=== PATIENT | female | born 1970 | race Caucasian/White ===

== ENCOUNTER 2017-06-13 05:49 | Observation (INO) | payer OTHER ==
--- NOTE | 2017-05-26 14:07 | GHP ---
[f rep st] HISTORY AND PHYSICAL DATE OF ADMISSION: 06/13/2017 ADMITTING DIAGNOSES: 1. Complex hyperplasia with atypia. 2. Dysfunctional uterine bleeding. 3. Menorrhagia. HISTORY OF PRESENT ILLNESS: Patient is a 46-year-old, nulliparous female, who presents to my office in December with complaints of irregular menses for the past 2 years duration. Age of menarche is 14. Cycles usually regular, lasting 5-6 days, now cycles are "erratic." She can bleed for a whole month, heavy with clots. She did have a cycle that started in August 2016 and ended in October 2016. She had no bleeding for 2 weeks and then started bleeding heavy again in April. Currently, she is not bleeding. The patient does have a history of hypothyroidism, stable on medications, and was recently increased to 200 mcg. She does have a history of anemia, and is status post iron transfusion 2 weeks ago. She had recent blood work with her PCP, and everything looked normal. A pelvic ultrasound showed a uterus 8 x 7 x 7 cm, with thickened endometrium at 3 cm, and a 4 x 3 cm irregular shaped solid mass within the upper mid endometrium , with a feeder vessel, and it did not have a typical appearance of fibroid or polyp. The right ovary is not seen well due to bowel and the left ovary has 2 cystic masses about 1 x 2 cm, and 2 x 2 cm. No free fluid noted. An endometrial biopsy under ultrasound guidance was done that revealed complex hyperplasia with atypia. I reviewed results with the patient and recommended surgical removal of uterus, a hysterectomy since the patient is not a candidate for progesterone treatment. I offered to have the patient see LASTING MACHINE OPERATOR HAND METHOD/ONC, Dr. Roselia Barber in [place] for surgery. She is not interested in going to [place] , and desires to have the surgery done here at [facility]. She saw her primary care physician, and got surgical clearance. She is waiting to see what her iron levels are to see if she needs another iron transfusion prior to surgery. PAST OB HISTORY: Patient is nulliparous. LASTING MACHINE OPERATOR HAND METHOD HISTORY: Age of menarche 12-13. Cycles used to be regular, about 5-6 days , now have been irregular for the past 2 years. The patient denies a history of abnormal Pap smears or any exposure to sexually transmitted diseases. CURRENT MEDICATIONS: Levothyroxine, Cosentyx, Zyrtec, Zantac. ALLERGIES: No known drug allergies. PAST MEDICAL HISTORY: Hypothyroidism, psoriasis, GERD, anemia, and seasonal allergies. PAST SURGICAL HISTORY: Ear tube placement, and adenoidectomy at age 12. FAMILY HISTORY: Noncontributory. SOCIAL HISTORY: Patient is and lives with her . Denies any smoking or illicit drug use. Admits to alcohol occasionally on the weekends. REVIEW OF SYSTEMS: A 10-point review of systems is negative. Pertinent positives noted in HPI. LAB WORK: Blood work is pending. EXAM: GENERAL: The patient is a well-nourished, well-developed female, alert and oriented x3. Obese. VITAL SIGNS: Stable. Afebrile. CARDIOVASCULAR: Regular rate and rhythm. LUNGS: Clear to auscultation bilaterally. ABDOMEN: Obese, soft, nontender, nondistended. On bimanual exam, uterus is normal size, nontender, mobile. No adnexal mass is noted. Body habitus does limit accuracy of the exam. EXTREMITIES: Normal to inspection without calf tenderness or edema. ASSESSMENT AND PLAN: Patient is a 46-year-old nulliparous female with dysfunctional uterine bleeding, menorrhagia, and recent diagnosis of complex hyperplasia with atypia. 1. Discussed a 25% risk of developing uterine cancer with this diagnosis. The patient wants to proceed with laparoscopic hysterectomy, bilateral salpingectomy at this time, she desires to keep her ovaries. 2. Discussed surgery, its limitations, n.p.o. status, and postop recovery. 3. Surgical consents were obtained. 4. Discussed risks, benefits, alternatives with the patient including bleeding , infection, and risks to damage to surrounding organs including bowel, bladder and ureters. 5. Patient understands all risks of surgery, and wants to proceed with surgery at this time. 6. Deep vein thrombosis prophylaxis with sequential compression devices. 7. IV antibiotics glassware maker demonstrator to operating room. 8. We will use naproxen for pain control since patient does not tolerate Motrin. /[id number]/MODL MTDD
[2017-06-13] MEDS ORDERED: ceFAZolin 3 GM in D5W 100 ML IV ONE (06:00)
[2017-06-13] MEDS ORDERED: LIDOCAINE 1% 2 ML INJ ID PRN (06:11)
[2017-06-13] MEDS ORDERED: LR 1,000 ML IV ONE (06:11)
[2017-06-13] MEDS ORDERED: BUPIVACAINE 0.5% 30 ML SDV ONE (06:42)
[2017-06-13] MEDS ORDERED: MIDAZOLAM 2 MG/2 ML VIAL IVP ONE (07:09)
[2017-06-13] MEDS ORDERED: MIDAZOLAM 2 MG/2 ML VIAL ONE (07:10)
--- NOTE | 2017-06-13 07:10 | PDANEPAE ---
ANE History of Present Illness Patient presents for Lap Hys ANE Past Medical History - Cardiovascular History Hx Hypertension: No Hx Arrhythmias: No Hx Chest Pain: No Hx Coronary Artery / Peripheral Vascular Disease: No Hx CHF / Valvular Disease: No Hx Palpitations: No - Pulmonary History Hx COPD: No Hx Asthma/Reactive Airway Disease: No Hx Recent Upper Respiratory Infection: No Hx Oxygen in Use at Home: No Hx Sleep Apnea: No Sleep Apnea Screening Result - Last Documented: Negative - Neurologic History Hx Cerebrovascular Accident: No Hx Seizures: No Hx Dementia: No - Endocrine History Hx Diabetes: No Obesity: yes, moderate, severe - Renal History Hx Renal Disorders: No - Liver History Hx Hepatic Disorders: No - Neurological & Psychiatric Hx Hx Neurological and Psychiatric Disorders: No - Cancer History Hx Cancer: Yes Cancer History Comment: basal cell skin - Congenital Disorder History Hx Congenital Disorders: No - GI History GERD: moderate Hx Gastrointestinal Disorders: No - Other Health History Other Health History: sinus congestion. iron deficiency, anemia - Chronic Pain History Chronic Pain: No - Surgical History Prior Surgeries: none ANE Review of Systems Review of Systems: - Exercise capacity METS (RN): 4 METS ANE Patient History - Allergies Allergies/Adverse Reactions: No Allergies [NKDA] Allergy (Verified 12/22/16 12:32) - Home Medications Home Medications: Cetirizine [ZyrTEC 10 mg (*)] 10 mg PO DAILY 05/29/17 [Last Taken 06/12/17 22:00 ] Levothyroxine [Synthroid 200 mcg (*)] 200 mcg PO DAILY06 05/29/17 [Last Taken 04:00] Ranitidine HCl [Zantac] 150 mg PO HS 05/29/17 [Last Taken 06/12/17 22:00] Secukinumab [Cosentyx Syringe] 300 mg SQ Q30D 05/29/17 [Last Taken 05/04/17] - NPO status NPO Status: no food or drink >8 hours NPO Since - Liquids (Date): 06/12/17 NPO Since - Liquids (Time): 00:59 NPO Since - Solids (Date): 06/12/17 NPO Since - Solids (Time): 22:00 - Smoking Hx Smoking Status: Former smoker - Family Anes Hx Family Hx Anesthesia Complications: none ANE Labs/Vital Signs - Vital Signs Blood Pressure: 165/92 Heart Rate: 99 Respiratory Rate: 20 O2 Sat (%): 96 Height: 175.26 cm Weight: 140.614 kg ANE Physical Exam - Airway Neck exam: FROM Mallampati Score: Class 2 Mouth exam: normal dental/mouth exam - Pulmonary Pulmonary: no respiratory distress - Cardiovascular Cardiovascular: regular rate and rhythym - ASA Status ASA Status: II ANE Anesthesia Plan Anesthesia Plan: general endotracheal anesthesia (RBA discussed)
--- NOTE | 2017-06-13 07:10 | PDHPUP ---
History & Physical Update H&P update statement: This history and physical update is based on an assessment of the patient which was completed after admission or registration (within 24 hours), but prior to the surgery/procedure. H&P update: H&P reviewed & patient examined, no change in patient's condition since H&P completed
[2017-06-13] MEDS ORDERED: PROPOFOL 200 MG/20 ML VIAL ONE (07:17)
[2017-06-13] MEDS ORDERED: PROPOFOL/EMULSION 500 MG/50 ML BOTTLE IV ONE ×2 (07:17→08:31)
[2017-06-13] MEDS ORDERED: fentaNYL 100 MCG/2 ML INJ ONE (07:17)
[2017-06-13] MEDS ORDERED: SUCCINYLCHOLINE CHLORIDE 200 MG/10 ML SYR IVP ONE (07:19)
[2017-06-13] MEDS ORDERED: ROCURONIUM 50 MG/5 ML VIAL ONE ×3 (07:23→09:19)
[2017-06-13] MEDS ORDERED: DEXAMETHASONE 4 MG/ML VIAL ONE (08:06)
[2017-06-13] MEDS ORDERED: RANITIDINE 50 MG/2 ML VIAL ONE (08:06)
[2017-06-13] MEDS ORDERED: ONDANSETRON 4 MG/2 ML VIAL ONE (08:06)
[2017-06-13] MEDS ORDERED: METOCLOPRAMIDE 10 MG/2 ML VIAL ONE (08:06)
[2017-06-13] MEDS ORDERED: HYDROmorphONE/DILAUDID 2 MG/ML INJ ONE ×2 (08:16→10:51)
[2017-06-13] MEDS ORDERED: SUGAMMADEX SODIUM 200 MG/2 ML VIAL IVP ONE (11:21)
[2017-06-13] MEDS ORDERED: fentaNYL 100 MCG/2 ML INJ IVP PRN ×2 (11:41→12:35)
[2017-06-13] MEDS ORDERED: HYDROmorphONE/DILAUDID 2 MG/ML INJ IVP PRN ×2 (11:41→12:35)
[2017-06-13] MEDS ORDERED: ACETAMINOPHEN 500 MG TAB PO PRN (11:41)
[2017-06-13] MEDS ORDERED: LR 500 ML IV PRN (11:41)
[2017-06-13] MEDS ORDERED: oxyCODONE IR 5 MG TAB PO PRN ×2 (11:41→12:35)
[2017-06-13] MEDS ORDERED: ONDANSETRON 4 MG/2 ML VIAL IVP PRN ×2 (11:41→12:09)
[2017-06-13] MEDS ORDERED: NALOXONE HCL 0.4 MG/ML INJ IVP PRN ×2 (11:41→12:35)
--- NOTE | 2017-06-13 12:08 | POSTOPPROG ---
Post Op Note Date of Operation: 06/13/17 Surgeon: Loretta Beaver Thaw Shed Heater Tender: Comfort Roblero Anesthesiologist: Eliu Robertson Anesthesia: GET(General Endotracheal) Pre-op Diagnosis: Complex hyperplasia with atypia; DUB; menorrhagia Post-op Diagnosis: Complex hyperplasia with atypia; DUB; menorrhagia Indication: 46 y/o nulliparous w/ DUB, menorrhagia; EMBx-complex hyperplasia w/ atypia Procedure: TLH, BS; cystoscopy; repair of vaginal laceration Findings: Enlarged ut that sounded 10 cm; R ovary with PCOS; L ovary wnl; tubes wnl Inf/Abcess present in the surg proc area at time of surgery?: No Depth: Organ Space EBL: 50-100 (50 cc) Total fluids administered: 1800 cc LR UO: 250 cc clear urine at end Complications: None Specimen(s): Uterus and fallopian tubes
[2017-06-13] MEDS ORDERED: ONDANSETRON DISINTEGRATING 4 MG TAB PO PRN (12:09)
[2017-06-13] MEDS ORDERED: HYDROCODONE/APAP 5/325 TAB PO PRN (12:09)
[2017-06-13] MEDS ORDERED: NAPROXEN SODIUM 220 MG TAB PO PRN (12:13)
[2017-06-13] MEDS ORDERED: LR 1,000 ML IV SCH (12:30)
[2017-06-13] MEDS ORDERED: LABETALOL HCL 5 MG/ML 20 ML MDV IVP PRN (12:35)
[2017-06-13] MEDS ORDERED: ceFAZolin 2 GM/SWFI 2 GM/20 ML SYR IVP ONE (12:36)
--- NOTE | 2017-06-13 12:37 | POSTANESTH ---
Post Anesthetic Evaluation Cardiovascular Status: Similar to Pre-Op Cond Respiratory Status: Similar to Pre-op Cond. Level of Consciousness/Mental Status: Alert and Oriented Pain Control: Adequate, Prn Tx Ordered Nausea/Vomiting Control: Adequate, Prn Tx Ordered Complications Possibly Related to Anesthesia: None Noted
[2017-06-13] MEDS: KETOROLAC 30 MG/1 ML SDV IVP SCH ×2 (17:26→23:48)
[2017-06-13] MEDS ORDERED: SODIUM FERRIC GLUCONAT/SUCROSE 125 MG in NS 100 ML IV ONE (17:41)
[2017-06-14] MEDS: KETOROLAC 30 MG/1 ML SDV IVP SCH (05:56)
--- NOTE | 2017-06-14 07:27 | SOAPPROG ---
[facility] Progress Note Assessment/Plan: Assessment: 1) s/p TLH, BS, cystoscopy and vaginal lac repair secondary to complex hyperplasia, DUB and menorrhagia POD # 1 - pt is stable 2) Anemia -s/p IV iron transfusion per pt request, pt is asymptomatic Plan: Continue routine post-op care Urine output good thus far, voided x 1 Plan for d/c home later this am Instructions reviewed with pt Rx given for [place] and Naproxen - to partner yesterday Recommend iron, colace, Miralax prn Pelvic rest and lifting restrictions given RTC in 2 weeks for post-op check 06/14/17 07:22 Subjective: Pt seen and examined. Doing well, with no complaints. Pain is well controlled, only had Toradol so far. Pt is OOB without dizziness/lightheadedness, ralph regular diet, voiding and passing flatus. Minimal spotting at this time. Denies any f/c/n/v/CP or SOB. No calf tenderness. Objective: Vital Signs Temp Pulse Resp BP Pulse Ox 37.7 C 86 18 127/74 H 96 06/14/17 04:19 06/14/17 04:19 06/14/17 04:19 06/14/17 04:19 06/14/17 04:19 Laboratory Results 06/14/17 04:15 06/13/17 06/14/17 06/15/17 05:59 05:59 05:59 Intake Total 1900 2009 Output Total 100 2775 200 Balance 1800 -765 -200 Physical Exam - Physical Exam General Appearance: WD/WN, alert, no apparent distress Respiratory: lungs clear, normal breath sounds Cardiac/Chest: regular rate, rhythm Abdomen: normal bowel sounds, non-tender (appropriate tenderness), soft, other ( Incisions: C/D/I with glue intact; some ecchymosis) Pelvic Exam: deferred Skin: normal color, warm/dry Extremities: non-tender, normal inspection Neuro/Psych: alert, normal mood/affect, oriented x 3 ICD10 Worksheet Patient Problems: Problems Problem Status Onset Complex atypical endometrial hyperplasia Acute DUB (dysfunctional uterine bleeding) Acute Menorrhagia Acute
[2017-06-14 09:04] VITALS: BP 137/75
--- NOTE | 2017-06-14 11:44 | GOP ---
[f rep st] OPERATIVE REPORT DATE OF OPERATION: 06/13/2017 SURGEON: Loretta Beaver DO SENIOR NET WEB DEVELOPER: Comfort Roblero MD. ANESTHESIA: General endotracheal. ANESTHESIOLOGIST: Dr. Gabo Robertson. PREOPERATIVE DIAGNOSIS: 1. Complex hyperplasia with atypia. 2. Dysfunctional uterine bleeding. 3. Menorrhagia. 4. Morbid obesity. POSTOPERATIVE DIAGNOSIS: 1. Complex hyperplasia with atypia. 2. Dysfunctional uterine bleeding. 3. Menorrhagia. 4. Morbid obesity. PROCEDURE PERFORMED: Total laparoscopic hysterectomy with bilateral salpingectomy, Cystoscopy, and repair of vaginal laceration. FINDINGS: Grossly normal but enlarged uterus that sounded to 10 cm. No definitive fibroids noted. Right ovary consistent with PCOS, but left ovary normal appearing. Bilateral tubes grossly normal appearing. Upper abdomen grossly normal appearing. Appendix not visualized. All specimens to pathology. SPECIMENS: Uterus, bilateral tubes. ESTIMATED BLOOD LOSS: 100 cc. INDICATIONS: The patient is a 46-year-old nulliparous female who is morbidly obese, who presents with a long history of dysfunctional uterine bleeding, and menorrhagia for the past 2 years. The patient does have a history of hypothyroidism, and stable on medications. She also has a history of anemia and gets IV iron infusions with her primary care doctor. Pelvic ultrasound revealed an enlarged uterus with thickened endometrium at 3 cm and a 4 x 3 cm regular-shaped solid mass within the upper mid endometrium. Endometrial biopsy under ultrasound guidance was done, and revealed complex hyperplasia with atypia. Results were reviewed with the patient. Recommended surgical removal of uterus, hysterectomy, since the patient is not a candidate for progesterone treatment. Offered to have the patient see DENTAL HYGIENE INSTRUCTOR/ONC, Dr. Roselia Boland, in [place] for surgery. She is not interested in going to [place], desires to have surgery done here at [facility]. She sa her primary care physician, and got surgical clearance. Surgical consents were obtained. We discussed risks, benefits, alternatives of the procedure including but not limited to bleeding, infection and damage to surrounding organs. The patient understands all risks of the procedure and wants to proceed at this time. DESCRIPTION OF PROCEDURE: The patient was taken to the operating room where general anesthesia was obtained with some difficulty secondary to the patient's body habitus. The patient was then placed in dorsal lithotomy position, prepped and draped in the usual sterile manner. A Calhoun catheter was placed in her bladder. After WHO time-out was performed, an open-sided speculum was placed in patient's vagina. The anterior lip of the cervix was grasped with a single- tooth tenaculum. The cervix was dilated up to an 8 Hegar. Uterus was then sounded to 10 cm. The medium-sized cup and size 10 tip for the RAULITO manipulator was used and this was advanced up through the cervix to provide a means to manipulate the uterus. All instruments were then removed from the vagina. We then turned our attention to the patient's abdomen. A very large pannus was noted. The infraumbilical area was injected with 0.5% plain Marcaine and a 5 mm infraumbilical skin incision was made with a knife. The long Veress needle was then inserted very carefully while tenting the abdominal wall. Aspiration was negative. Abdomen was then insufflated with carbon dioxide, but there was an elevated opening pressure noted, so the gas was turned off and the Veress needle removed. The incision was enlarged to 10-12 mm and we went in directly with the trocar and attached laparoscope. CO2 gas was then turned on and pneumoperitoneum was obtained. The patient was then placed in Trendelenburg position. At this time, there was inadequate visualization of the pelvic structures secondary to omentum and bowel. After injection of more local, a 10 mm skin incision was made in the right lower quadrant and a 5 mm skin incision was made in the left lower quadrant and 2 cm superior and medial to that another 5 mm incision was made. Atraumatic trocars were placed under visualization without difficulty. The patient was placed in more Trendelenburg position as much as would allow. The fimbria of the right tube was grasped with an atraumatic grasper. Then using the LigaSure, the mesosalpinx was grasped, cauterized multiple times, and we worked our way up to the cornual insertion of the tube. The tube was then transected and removed through the 10 mm port without difficulty. Specimen sent to Pathology. The round ligament was then grasped, coagulated with the LigaSure multiple times, and transected. Hemostasis was noted. The dissection was carried down to the anterior and posterior leaves of the broad ligament which were and then to the bladder flap anteriorly. This was created both sharply and bluntly. Uterine vessels were then cauterized multiple times, and transected with the LigaSure. Hemostasis was ensured. We also incorporated the cardinal ligaments which were cauterized and transected with the LigaSure. We then turned our attention to the left side. The left fimbria was grasped with atraumatic graspers, and then using the LigaSure, in a similar fashion, the mesosalpinx was cauterized, and transected and carried all the way to the cornual insertion of the tube. The left tube was then transected and removed through the 10 mm port without difficulty. Hemostasis was noted. A similar procedure was done on this side to complete the hysterectomy. All pedicles did appear hemostatic. Attention was then turned to the colpotomy. This was done using the hook. We started anteriorly and was able to do this circumferentially until the colpotomy was complete. There was some bleeding noted from the vaginal cuff. At this time, the uterus was removed through the vagina with some difficulty secondary to tight hymenal band, nulliparity. A sponge glove was then placed in the vagina in order to maintain pneumoperitoneum. We then went back up top to visualize the vaginal cuff laparoscopically. Using a running 0 Vicryl V-Loc suture, the vaginal cuff was closed [id number]. Hemostasis was ensured. Pelvis was then irrigated with copious amounts of normal saline. There was no bleeding noted from any of the pedicles, and the vaginal cuff was hemostatic. It was difficult secondary to patient's body habitus to visualize the ureters; so we proceeded with a cystoscopy. Calhoun catheter was removed and a 30 degree cystoscope was placed up into the urethra and gently passed to the bladder which was distended using NS. The dome of the bladder was visualized as well as bilateral ureteral orifices with spillage of urine seen bilaterally. The cystoscope was then removed and new calhoun catheter placed to allow bladder to drain. The trocar sleeves were removed and all gas was allowed to escape from the abdomen. Because of the patient's habitus, we were unable to use the fascial closing device. The fascia of the infraumbilical incision was found and closed with 3-0 Vicryl. We then closed the subcutaneous in 2 layers with 2-0 Vicryl. The skin was then closed with 3-0 Monocryl. The fascia of the right lower quadrant incision was unable to be found so we closed the subcutaneous in multiple layers with 2-0 Vicryl, and then the skin was closed with 3-0 Monocryl. The other 5 mm skin incisions were closed with 3-0 Monocryl. Dermabond was then applied over all 4 incisions. Hemostasis was noted. The sponge glove was removed from the vagina and there was noted to be bleeding. With inspection, there was a midline vaginal laceration at the fourchette. It was repaired with a [id number] stitch of 3-0 Vicryl. Hemostasis noted. There was also a right vaginal wall laceration which was closed with 3-0 Vicryl. There was still noted to be some oozing and there was an additional loss of 50 cc of blood, so the vagina was packed with a vaginal packing to be removed in the morning. There were no complications. Patient tolerated the procedure well. All instrument, sponge, and needle counts were correct x2. The patient was then taken out of dorsal lithotomy position, awakened, taken to the recovery room in stable condition. IV FLUIDS: 1800 cc LR. URINE OUTPUT: 250 cc of clear urine at the end of procedure. COMPLICATIONS: None. /[id number]/MODL MTDD
== END 2017-06-14 12:54 | disposition home or self-care (01) ==
LOC: F3E 05:49 → FOB 15:45
PROVIDERS: ADMIT Obstetrics & Gynecology; ATTEND Obstetrics & Gynecology
DX: C54.1 Malignant neoplasm of endometrium (principal); N85.00 Endometrial hyperplasia, unspecified; N93.8 Other specified abnormal uterine and vaginal bleeding; N92.0 Excessive and frequent menstruation with regular cycle; E66.01 Morbid (severe) obesity due to excess calories
CPT/HCPCS: 12001; 58571; G0378; J0330; J0690; J1100; J1170; J1885; J2250; J2405; J2704; J2765; J2780; J2916; J3010

== ENCOUNTER → 2018-01-04 | Outpatient (CLI) | payer OTHER | LOC: FIMAGING 12:50 | PROVIDERS: ATTEND Obstetrics & Gynecology | DX: Z12.31 Encounter for screening mammogram for malignant neoplasm of breast (principal) ==